=== PATIENT | female | born 1960 | race Caucasian/White ===

== ENCOUNTER 2021-02-19 17:53 | Observation (INO) ==
[2021-02-19] MEDS ORDERED: 0.9 % Sodium Chloride 500 ML IV ONE (18:57)
[2021-02-19] MEDS ORDERED: Tdap (Boostrix) Vaccine 0.5 ML SYRINGE IM ONE (19:07)
[2021-02-19 19:11] LABS: Basophils % 0.3 %; Eosinophils # 0.4 K/mcL (0.0-0.6); Eosinophils % 2.7 %; Hematocrit 39.4 % (35.3-44.9); Hemoglobin 12.9 g/dL (11.5-15.4); Immature Granulocytes % 0.5 % (0-4); Lymphocytes # 2.2 K/mcL (0.6-4.6); Lymphocytes % 14.8 %; Mean Corpuscular HGB Conc 32.7 g/dL (31.6-35.5); Mean Corpuscular Hemoglobin 29.9 pg (28.0-33.3); Mean Corpuscular Volume 91.4 fL (83.0-100.0); Monocytes # 0.9 K/mcL (0.0-1.3); Monocytes % 5.9 %; Neutrophils # 11.1 K/mcL (1.6-8.9); Platelet Count 257 K/mcL (140-400); Red Blood Count 4.31 M/mcL (3.82-4.97); Red Cell Distribution Width 13.7 % (11.5-14.5); Segmented Neutrophils % 75.8 %; White Blood Count 14.6 K/mcL (4.3-11.1)
[2021-02-19 19:30] LABS: BUN/Creatinine Ratio 14 (6-26); Blood Urea Nitrogen 25 mg/dL (8-23); Carbon Dioxide 23 mEq/L (23-29); Chloride 98 mEq/L (98-107); Ethanol < 10 mg/dL (Less than 10); Glucose 144 mg/dL (70-105); Osmolality,Calculated 285 (280-300); Potassium 4.6 mEq/L (3.5-5.1); Sodium 134 mEq/L (136-145); Troponin I < 0.03 ng/mL (< 0.04); eGFR For African Americans 34 (> 60); eGFR For Non-African Americans 28 (> 60)
[2021-02-19] MEDS ORDERED: Acetaminophen 325 MG TABLET PO ONE (20:13)
[2021-02-19 21:18] LABS: Bacteria,Urine Many per hpf (None-Few); Bilirubin,Urine Negative (Negative); Blood,Urine Negative (Negative); Budding Yeast,Urine Few per hpf (None Seen); Clarity,Urine Turbid (Clear); Color,Urine Dark-Yellow (Yellow); Glucose,Urine (UA) Normal (Normal); Ketones,Urine Negative (Negative); Leukocyte Esterase,Urine Small (Negative); Mucus,Urine Many per lpf (None-Few); Nitrite,Urine Negative (Negative); PH,Urine 5.5 pH Units (5.0-8.0); Protein,Urine 30 mg/dL (Neg-Trace); RBC,Urine 15-30 per hpf (0-3); Specific Gravity,Urine 1.018 (1.010-1.025); Urobilinogen,Urine Normal (Normal); WBC,Urine TNTC per hpf (0-3)
[2021-02-19 21:21] LABS: Amphetamine Screen,Urine Negative ng/mL (Cutoff=1000); Barbiturate Screen,Urine Negative ng/mL (Cutoff=200); Benzodiazepines Screen,Urine Negative ng/mL (Cutoff=200); Cannabinoid Screen,Urine Negative ng/mL (Cutoff = 50); Cocaine Screen,Urine Negative ng/mL (Cutoff= 300); Opiate Screen,Urine Negative ng/mL (Cutoff=300); Phencyclidine Screen,Urine Negative ng/mL (Cutoff=25)
[2021-02-19] MEDS ORDERED: cefTRIAXone 1,000 MG in Water for inj. (sterile) 10 ML IVP ONE (22:52)
[2021-02-19] MEDS ORDERED: Melatonin 3 MG TABLET PO PRN (23:36)
[2021-02-19] MEDS ORDERED: Acetaminophen 325 MG TABLET PO PRN (23:36)
[2021-02-19] MEDS ORDERED: Ondansetron 4 MG/2 ML VIAL IVP PRN (23:36)
[2021-02-19] MEDS ORDERED: Naloxone 0.4 MG/ML INJ IVP PRN (23:36)
[2021-02-19] MEDS ORDERED: D5% in Water 1,000 ML IVC PRN (23:40)
[2021-02-19] MEDS ORDERED: *HR* Dextrose 50 % in Water (Syg) 50 ML SYRINGE IVP PRN (23:40)
[2021-02-19] MEDS ORDERED: Dextrose Gel 15 GM/37.5 ML TUBE PO PRN ×2 (23:40)
[2021-02-20] MEDS: Ringers Solution, Lactated 1,000 ML IVC SCH ×2 (01:43→16:00)
[2021-02-20 05:40] LABS: Basophils # 0.1 K/mcL (0.0-0.2); Basophils % 0.6 %; Eosinophils % 9.2 %; Hematocrit 37.4 % (35.3-44.9); Hemoglobin 12.1 g/dL (11.5-15.4); Immature Granulocytes % 0.4 % (0-4); Lymphocytes # 3.3 K/mcL (0.6-4.6); Lymphocytes % 29.8 %; Mean Corpuscular HGB Conc 32.4 g/dL (31.6-35.5); Mean Corpuscular Hemoglobin 29.7 pg (28.0-33.3); Mean Corpuscular Volume 91.7 fL (83.0-100.0); Mean Platelet Volume 10.2 fL (9.4-12.4); Monocytes # 0.8 K/mcL (0.0-1.3); Monocytes % 7.3 %; Neutrophils # 5.9 K/mcL (1.6-8.9); Platelet Count 217 K/mcL (140-400); Red Blood Count 4.08 M/mcL (3.82-4.97); Segmented Neutrophils % 52.7 %; White Blood Count 11.2 K/mcL (4.3-11.1)
[2021-02-20 05:43] LABS: Prothrombin Time 11.3 Seconds (9.4-12.1)
[2021-02-20 05:54] LABS: Calcium 9.3 mg/dL (8.6-10.3); Magnesium 1.7 mg/dL (1.6-2.6)
[2021-02-20] MEDS: Insulin LISPRO 300 UNITS/3 ML VIAL SUBQ SCH ×3 (08:14→16:45)
[2021-02-20] MEDS: Aspirin Enteric Coated 81 MG Tablet PO SCH (08:14)
[2021-02-20] MEDS ORDERED: Insulin DETEMIR 100 UNIT/ML X5UNITS SUBQ SCH (09:00)
[2021-02-20] MEDS ORDERED: cefTRIAXone 1,000 MG in Water for inj. (sterile) 10 ML IVP SCH (09:00)
[2021-02-20] MEDS ORDERED: Insulin LISPRO 300 UNITS/3 ML VIAL SUBQ SCH (21:00)
[2021-02-21 01:22] LABS: Basophils # 0.1 K/mcL (0.0-0.2); Basophils % 0.6 %; Eosinophils # 1.3 K/mcL (0.0-0.6); Eosinophils % 12.7 %; Hematocrit 36.7 % (35.3-44.9); Hemoglobin 12.2 g/dL (11.5-15.4); Immature Granulocytes % 0.3 % (0-4); Lymphocytes # 3.4 K/mcL (0.6-4.6); Lymphocytes % 33.6 %; Mean Corpuscular HGB Conc 33.2 g/dL (31.6-35.5); Mean Corpuscular Hemoglobin 30.3 pg (28.0-33.3); Mean Corpuscular Volume 91.1 fL (83.0-100.0); Mean Platelet Volume 9.9 fL (9.4-12.4); Monocytes # 0.8 K/mcL (0.0-1.3); Monocytes % 7.7 %; Neutrophils # 4.6 K/mcL (1.6-8.9); Platelet Count 208 K/mcL (140-400); Red Blood Count 4.03 M/mcL (3.82-4.97); Segmented Neutrophils % 45.1 %; White Blood Count 10.2 K/mcL (4.3-11.1)
[2021-02-21 01:39] LABS: BUN/Creatinine Ratio 23 (6-26); Blood Urea Nitrogen 18 mg/dL (8-23); Calcium 9.3 mg/dL (8.6-10.3); Carbon Dioxide 25 mEq/L (23-29); Chloride 107 mEq/L (98-107); Glucose 75 mg/dL (70-105); Magnesium 1.7 mg/dL (1.6-2.6); Osmolality,Calculated 293 (280-300); Potassium 4.1 mEq/L (3.5-5.1); Sodium 141 mEq/L (136-145); eGFR For African Americans > 60 (> 60); eGFR For Non-African Americans > 60 (> 60)
[2021-02-21] MEDS: Insulin LISPRO 300 UNITS/3 ML VIAL SUBQ SCH ×2 (08:04→12:50)
[2021-02-21] MEDS: Aspirin Enteric Coated 81 MG Tablet PO SCH (08:48)
[2021-02-21] MEDS ORDERED: cefTRIAXone 1,000 MG in Water for inj. (sterile) 10 ML IVP SCH (09:00)
[2021-02-21] MEDS ORDERED: Tiotropium 10 INH DOSE IH PRN (11:48)
[2021-02-21] MEDS ORDERED: BuPROPion SR (12 HR) 150 MG TABLET PO SCH (11:49)
[2021-02-21] MEDS ORDERED: FLUoxetine 20 MG CAPSULE PO SCH (12:00)
[2021-02-21] MEDS ORDERED: Sacubitril/Valsartan 49/51 MG 1 TABLET PO SCH (12:00)
[2021-02-21] MEDS ORDERED: Fenofibrate 54 MG TABLET PO SCH (12:00)
[2021-02-21] MEDS ORDERED: Aspirin Enteric Coated 81 MG Tablet PO SCH (12:00)
[2021-02-21] MEDS ORDERED: FLU Vac QV 21-22 (6Month+)/PF 0.5 ML SYRINGE IM ONE (14:42)
[2021-02-21 15:04] VITALS: BP 132/67; PULSE 86; TEMP 98.2; O2SAT 93
[2021-02-22] MEDS ORDERED: Metoprolol XL (24 HR) Succ 25 MG TAB.ER.24H PO SCH (09:00)
== END 2021-02-21 15:27 | disposition home or self-care (01) ==
LOC: 3ANU 17:53 → EMEROOARM 17:53 → SUATTDRO 02-20 → 3ANU 02-20 01:10
PROVIDERS: ADMIT Family Medicine; ATTEND Internal Medicine

== ENCOUNTER 2021-12-14 17:39 | Observation (INO) ==
[2021-12-14] MEDS ORDERED: Iopamidol - 370 500 ML MLS IVP ONE (18:04)
[2021-12-14 18:15] LABS: Hematocrit 36.6 % (35.3-44.9); Hemoglobin 11.7 g/dL (11.5-15.4); Mean Corpuscular Hemoglobin 29.9 pg (28.0-33.3); Mean Corpuscular Volume 93.6 fL (83.0-100.0); Mean Platelet Volume 9.9 fL (9.4-12.4); Platelet Count 246 K/mcL (140-400); Red Blood Count 3.91 M/mcL (3.82-4.97); Red Cell Distribution Width 13.5 % (11.5-14.5); White Blood Count 7.1 K/mcL (4.3-11.1)
[2021-12-14 18:39] LABS: BUN/Creatinine Ratio 17 (6-26); Blood Urea Nitrogen 22 mg/dL (8-23); Calcium 9.5 mg/dL (8.6-10.3); Carbon Dioxide 25 mEq/L (23-29); Chloride 106 mEq/L (98-107); Glucose 144 mg/dL (70-105); Osmolality,Calculated 296 (280-300); Potassium 4.4 mEq/L (3.5-5.1); Sodium 140 mEq/L (136-145); Troponin I < 0.03 ng/mL (< 0.04); eGFR For African Americans 49 (> 60); eGFR For Non-African Americans 41 (> 60)
[2021-12-14 19:08] LABS: INR 1.1; Prothrombin Time 11.8 Seconds (9.4-12.1)
[2021-12-14 19:11] LABS: Activated Partial Thrombo Time 33.2 Seconds (26.0-36.0)
[2021-12-14] MEDS ORDERED: Acetaminophen 325 MG TABLET PO PRN (21:26)
[2021-12-14] MEDS ORDERED: Ondansetron 4 MG/2 ML VIAL IVP PRN (21:26)
[2021-12-14] MEDS ORDERED: Naloxone 0.4 MG/ML INJ IVP PRN (21:26)
[2021-12-14] MEDS ORDERED: Perflutren Lipid Microsphere 1.3 ML in 0.9 % Sodium Chloride 8.7 ML IVP PRN (21:28)
[2021-12-14] MEDS ORDERED: D5% in Water 1,000 ML IVC PRN (22:38)
[2021-12-14] MEDS ORDERED: *HR* Dextrose 50 % in Water (Syg) 50 ML SYRINGE IVP PRN (22:38)
[2021-12-14] MEDS ORDERED: Dextrose Gel 15 GM/37.5 ML TUBE PO PRN ×2 (22:38)
[2021-12-14] MEDS ORDERED: Aspirin Enteric Coated 81 MG Tablet PO ONE (22:43)
[2021-12-14] MEDS ORDERED: Tiotropium 10 INH DOSE IH PRN (22:44)
[2021-12-14 22:45] LABS: Bacteria,Urine Few per hpf (None-Few); Bilirubin,Urine Negative (Negative); Blood,Urine Negative (Negative); Clarity,Urine Clear (Clear); Color,Urine Light-Yellow (Yellow); Glucose,Urine (UA) Normal (Normal); Ketones,Urine Negative (Negative); Leukocyte Esterase,Urine Large (Negative); Mucus,Urine Few per lpf (None-Few); Nitrite,Urine Negative (Negative); Protein,Urine Negative (Neg-Trace); Specific Gravity,Urine > 1.030 (1.010-1.025); Squamous Epithelial Cell,Urine Few per hpf (None-Few); Transitional Epi Cells,Urine Few per hpf (None-Few); Urobilinogen,Urine Normal (Normal); WBC,Urine 15-30 per hpf (0-3)
[2021-12-14] MEDS ORDERED: Ipratropium/Albuterol Neb 3 ML IH PRN (23:16)
[2021-12-14 23:43] LABS: Amphetamine Screen,Urine Negative ng/mL (Cutoff=1000); Barbiturate Screen,Urine Negative ng/mL (Cutoff=200); Benzodiazepines Screen,Urine Negative ng/mL (Cutoff=200); Cannabinoid Screen,Urine Negative ng/mL (Cutoff = 50); Cocaine Screen,Urine Negative ng/mL (Cutoff= 300); Opiate Screen,Urine Negative ng/mL (Cutoff=300); Phencyclidine Screen,Urine Negative ng/mL (Cutoff=25)
[2021-12-14] MEDS: cefTRIAXone 1,000 MG in 0.9 % Sodium Chloride Mini Bag 100 ML IVPB SCH (23:45)
[2021-12-15 03:12] LABS: Basophils # 0.1 K/mcL (0.0-0.2); Basophils % 0.8 %; Eosinophils # 0.6 K/mcL (0.0-0.6); Eosinophils % 7.9 %; Hematocrit 35.2 % (35.3-44.9); Hemoglobin 11.3 g/dL (11.5-15.4); Immature Granulocytes % 0.4 % (0-4); Lymphocytes # 2.5 K/mcL (0.6-4.6); Lymphocytes % 33.9 %; Mean Corpuscular HGB Conc 32.1 g/dL (31.6-35.5); Mean Corpuscular Hemoglobin 30.1 pg (28.0-33.3); Mean Corpuscular Volume 93.9 fL (83.0-100.0); Mean Platelet Volume 10.1 fL (9.4-12.4); Monocytes # 0.7 K/mcL (0.0-1.3); Monocytes % 9.3 %; Neutrophils # 3.5 K/mcL (1.6-8.9); Platelet Count 214 K/mcL (140-400); Red Blood Count 3.75 M/mcL (3.82-4.97); Red Cell Distribution Width 13.4 % (11.5-14.5); Segmented Neutrophils % 47.7 %; White Blood Count 7.3 K/mcL (4.3-11.1)
[2021-12-15 03:23] LABS: Calcium 9.2 mg/dL (8.6-10.3); Chol/HDL Ratio 4.3 (0-4.9); Magnesium 1.8 mg/dL (1.6-2.6); Phosphorous 3.1 mg/dL (2.7-4.5); Potassium 4.2 mEq/L (3.5-5.1)
[2021-12-15 05:04] LABS: Estimated Average Glucose 166 mg/dl; Hemoglobin A1C 7.4 %
[2021-12-15] MEDS: Sacubitril/Valsartan 49/51 MG 1 TABLET PO SCH ×2 (08:38→20:52)
[2021-12-15] MEDS: Insulin LISPRO 300 UNITS/3 ML VIAL SUBQ SCH ×3 (08:40→16:10)
[2021-12-15] MEDS: Metoprolol XL (24 HR) Succ 25 MG TAB.ER.24H PO SCH (08:47)
[2021-12-15] MEDS: Gabapentin 400 MG CAPSULE PO SCH ×3 (09:08→20:51)
[2021-12-15] MEDS: Fenofibrate 54 MG TABLET PO SCH (09:08)
[2021-12-15] MEDS: BuPROPion SR (12 HR) 150 MG TABLET PO SCH ×2 (09:08→20:51)
[2021-12-15] MEDS: *HR* Metformin 500 MG TABLET PO SCH ×2 (09:08→16:30)
[2021-12-15] MEDS: FLUoxetine 20 MG CAPSULE PO SCH (09:09)
[2021-12-15] MEDS: Aspirin Enteric Coated 81 MG Tablet PO SCH (09:09)
[2021-12-15] MEDS ORDERED: SULFUR HEXAFLUORIDE MICROSPHR 25 MG VIAL IVP PRN (10:33)
[2021-12-15] MEDS: cefTRIAXone 1,000 MG in 0.9 % Sodium Chloride Mini Bag 100 ML IVPB SCH (23:05)
[2021-12-16] MEDS: Gabapentin 400 MG CAPSULE PO SCH ×2 (09:26→15:21)
[2021-12-16] MEDS: BuPROPion SR (12 HR) 150 MG TABLET PO SCH ×2 (09:26→20:37)
[2021-12-16] MEDS: Sacubitril/Valsartan 49/51 MG 1 TABLET PO SCH ×2 (09:27→20:34)
[2021-12-16] MEDS: Fenofibrate 54 MG TABLET PO SCH (09:27)
[2021-12-16] MEDS: Metoprolol XL (24 HR) Succ 25 MG TAB.ER.24H PO SCH (09:27)
[2021-12-16] MEDS: FLUoxetine 20 MG CAPSULE PO SCH (09:27)
[2021-12-16] MEDS: Aspirin Enteric Coated 81 MG Tablet PO SCH (09:27)
[2021-12-16] MEDS: *HR* Metformin 500 MG TABLET PO SCH ×2 (09:28→16:09)
[2021-12-16] MEDS: Insulin LISPRO 300 UNITS/3 ML VIAL SUBQ SCH ×3 (09:32→17:23)
[2021-12-16] MEDS ORDERED: Baclofen 10 MG TABLET PO PRN (15:13)
[2021-12-16] MEDS: Gabapentin 300 MG CAPSULE PO SCH ×2 (16:09→20:34)
[2021-12-16] MEDS: cefTRIAXone 1,000 MG in 0.9 % Sodium Chloride Mini Bag 100 ML IVPB SCH (22:41)
[2021-12-17] MEDS: *HR* Metformin 500 MG TABLET PO SCH (08:14)
[2021-12-17] MEDS: Fenofibrate 54 MG TABLET PO SCH (08:14)
[2021-12-17] MEDS: Aspirin Enteric Coated 81 MG Tablet PO SCH (08:15)
[2021-12-17] MEDS: Gabapentin 300 MG CAPSULE PO SCH (08:15)
[2021-12-17] MEDS: Insulin LISPRO 300 UNITS/3 ML VIAL SUBQ SCH ×2 (08:15→12:09)
[2021-12-17] MEDS: FLUoxetine 20 MG CAPSULE PO SCH (08:15)
[2021-12-17] MEDS: Sacubitril/Valsartan 49/51 MG 1 TABLET PO SCH (08:15)
[2021-12-17] MEDS: Metoprolol XL (24 HR) Succ 25 MG TAB.ER.24H PO SCH (08:16)
[2021-12-17] MEDS: BuPROPion SR (12 HR) 150 MG TABLET PO SCH (08:27)
[2021-12-17 10:41] VITALS: BP 104/59; PULSE 75; TEMP 97.7; O2SAT 96
== END 2021-12-17 13:55 | disposition home or self-care (01) ==
LOC: 3BNU 17:39 → EMEROOARM 17:39 → SUATTDRO 21:26 → 3BNU 21:52
PROVIDERS: ADMIT Internal Medicine; ATTEND Nurse Practitioner